=== PATIENT | male | born 1955 | race Caucasian/White ===

== ENCOUNTER 2016-10-26 08:20 | Day surgery (SDC) | payer OTHER ==
[~2016-10-26 08:20] MED LIST: LIDOCAINE HCL 1% MPF SOL ONE; PROPOFOL 500 MG/50 ML EMU IV ONE
[2016-10-26 10:42] VITALS: BP 147/82; PULSE 51; RESP 20; TEMP 97.1; O2SAT 99
== END 2016-10-26 11:00 | disposition home or self-care (01) ==
LOC: SURG 08:20
PROVIDERS: ATTEND Surgery
DX: Z12.11 Encounter for screening for malignant neoplasm of colon (principal); Z86.010 Personal history of colon polyps
CPT/HCPCS: 45378; J2001; J2704